=== PATIENT | female | born 1985 | race Caucasian/White ===

== ENCOUNTER 2017-03-04 03:52 | Emergency (ER) | payer MEDICAID ==
[2017-03-04] MEDS ORDERED: Aspirin Low Dose CHEW TAB* 81 MG PO ONE (04:50)
[2017-03-04 05:07] LABS: Hematocrit 32 % (35-47); Hemoglobin 10.5 g/dl (12.0-16.0); Mean Corpuscular HGB Conc 33 g/dl (31-36); Mean Corpuscular Hemoglobin 27 pg (27-31); Mean Corpuscular Volume 81 fL (80-97); Mean Platelet Volume 9 um3 (7.4-10.4); Red Blood Count 3.91 10^6/ul (4.0-5.4); Red Cell Distribution Width 14 % (10.5-15); White Blood Count 4.1 10^3/ul (3.5-10.8)
[2017-03-04 05:15] LABS: ALT 23 U/L (7-52); AST 20 U/L (13-39); Albumin 3.7 g/dL (3.2-5.2); Alkaline Phosphatase 45 U/L (34-104); Anion Gap 6 mmol/L (2-11); Blood Urea Nitrogen 16 mg/dL (6-24); CO2 Carbon Dioxide 25 mmol/L (22-32); Calcium 8.8 mg/dL (8.6-10.3); Chloride 106 mmol/L (101-111); EGFR African American 106.9 (>60); EGFR Non-African American 83.1 (>60); Globulin 2.7 g/dL (2-4); Glucose 84 mg/dL (70-100); Potassium 3.8 mmol/L (3.5-5.0); Sodium 137 mmol/L (133-145); Total Protein 6.4 g/dL (6.4-8.9)
--- NOTE | 2017-03-04 06:52 | ED ---
Mily Conteh Michael, scribed for Tram Nieves MD on 03/04/17 at 0456 . HPI Chest Pain - HPI Summary HPI Summary: 31 y/o female comes to the ED presenting with constant cramping CP that started today at 0100. She reports that the CP radiates to her neck, left shoulder, and down her LUE. The pt also c/o nausea, vomiting, and SOB. Zantac did not alleviate the pt's symptoms. No one in the pt's immediate family had a FL before the age of 55. - History of Current Complaint Chief Complaint: EDChestPainROMI Time Seen by Provider: 03/04/17 04:08 Hx Obtained From: Patient, Medical Records Onset/Duration: Started Hours Ago, Still Present Timing: Constant Initial Severity: Moderate Current Severity: Moderate Pain Intensity: 6 Pain Scale Used: 0-10 Numeric Chest Pain Location: Diffuse Chest Pain Radiates: Yes Chest Pain Radiates To:: Shoulder, Arm, Neck Character: Other: - cramping Aggravating Factor(s): Nothing Alleviating Factor(s): Nothing Associated Signs and Symptoms: Positive: Chest Pain, Shortness of Breath, Nausea , Vomiting - Allergy/Home Medications Allergies/Adverse Reactions: Allergies Allergy/AdvReac Type Severity Reaction Status Date / Time Penicillins [PCN] Allergy Unknown Unknown Verified 09/26/16 08:01 Reaction Details Sulfa Antibiotics Allergy Unknown Unknown Verified 09/26/16 08:01 Reaction Details PMH/Surg Hx/FS Hx/Imm Hx Endocrine/Hematology History: Denies: Hx Diabetes, Hx Systemic Lupus Erythematosus Cardiovascular History: Denies: Hx Congestive Heart Failure, Hx Hypertension Respiratory History: Reports: Hx Asthma - PT.STATES NO PROBLEMS X 1 YR GI History: Reports: Hx Diverticulosis, Other GI Disorders - collitis, status post gastric bypass History: Denies: Hx Dialysis, Hx Renal Disease Musculoskeletal History: Denies: Hx Rheumatoid Arthritis - Cancer History Hx Chemotherapy: No - Surgical History Surgery Procedure, Year, and Place: GASTRIC BYPASS @ [place], [place] APRIL 2014/TWISTED BOWEL WITH SX 09/2015 Infectious Disease History: No Infectious Disease History: Denies: Traveled Outside the [place] in Last 30 Days - Family History Known Family History: Positive: Cardiac Disease, Hypertension, Diabetes, Other - HLD - Social History Occupation: Employed Full-time Lives: With Family Alcohol Use: None Hx Substance Use: No Substance Use Type: Reports: None Hx Tobacco Use: No Smoking Status (MU): Never Smoked Tobacco Review of Systems Positive: Chest Pain Positive: Shortness Of Breath Positive: Vomiting, Nausea All Other Systems Reviewed And Are Negative: Yes Physical Exam Triage Information Reviewed: Yes Vital Signs On Initial Exam: Initial Vitals Temp Pulse Resp BP Pulse Ox 97.8 F 88 17 138/83 98 03/04/17 03:56 03/04/17 03:56 03/04/17 03:56 03/04/17 03:56 03/04/17 03:56 Vital Signs Reviewed: Yes Appearance: Positive: Well-Appearing, No Pain Distress Skin: Positive: Warm, Skin Color Reflects Adequate Perfusion, Dry Eyes: Positive: EOMI, EVELYN ENT: Positive: Pharynx normal, TMs normal Neck: Positive: Supple, Nontender Respiratory/Lung Sounds: Positive: Clear to Auscultation, Breath Sounds Present. Negative: Rales, Rhonchi, Wheezes Cardiovascular: Positive: RRR, Other - no gallops. Negative: Murmur, Rub Abdomen Description: Positive: Nontender, Soft, Other: - no rebound. Negative: Distended, Guarding Bowel Sounds: Positive: Present Musculoskeletal: Positive: Strength/ROM Intact. Negative: Edema Left, Edema Right Neurological: Positive: Sensory/Motor Intact, Alert, Oriented to Person Place, Time, CN Intact II-III Psychiatric: Positive: Affect/Mood Appropriate Diagnostics - Vital Signs Vital Signs Temp Pulse Resp BP Pulse Ox 03/04/17 03:56 97.8 F 88 17 138/83 98 - Laboratory Lab Results: Lab Results 03/04/17 03/04/17 03/04/17 Range/Units 04:30 04:30 04:30 WBC 4.1 (3.5-10.8) 10^3/ul RBC 3.91 L (4.0-5.4) 10^6/ul Hgb 10.5 L (12.0-16.0) g/dl Hct 32 L (35-47) % MCV 81 (80-97) fL MCH 27 (27-31) pg MCHC 33 (31-36) g/dl RDW 14 (10.5-15) % Plt Count 142 L (150-450) 10^3/ul MPV 9 (7.4-10.4) um3 Neut % (Auto) 45.4 (38-83) % Lymph % (Auto) 44.9 (25-47) % [place] % (Auto) 7.1 (1-9) % Eos % (Auto) 1.9 (0-6) % Baso % (Auto) 0.7 (0-2) % Absolute Neuts (auto) 1.8 (1.5-7.7) 10^3/ul Absolute Lymphs (auto) 1.8 (1.0-4.8) 10^3/ul Absolute Monos (auto) 0.3 (0-0.8) 10^3/ul Absolute Eos (auto) 0.1 (0-0.6) 10^3/ul Absolute Basos (auto) 0 (0-0.2) 10^3/ul Absolute Nucleated RBC 0 10^3/ul Nucleated RBC % 0 D-Dimer, Quantitative (Less Than 230) ng/mL Sodium 137 (133-145) mmol/L Potassium 3.8 (3.5-5.0) mmol/L Chloride 106 (101-111) mmol/L Carbon Dioxide 25 (22-32) mmol/L Anion Gap 6 (2-11) mmol/L BUN 16 (6-24) mg/dL Creatinine 0.80 (0.51-0.95) mg/dL Est GFR ( Amer) 106.9 (>60) Est GFR (Non-Af Amer) 83.1 (>60) BUN/Creatinine Ratio 20.0 (8-20) Glucose 84 (70-100) mg/dL Lactic Acid 0.6 (0.5-2.0) mmol/L Calcium 8.8 (8.6-10.3) mg/dL Total Bilirubin 0.30 (0.2-1.0) mg/dL AST 20 (13-39) U/L ALT 23 (7-52) U/L Alkaline Phosphatase 45 (34-104) U/L Troponin I 0.00 (<0.04) ng/mL Total Protein 6.4 (6.4-8.9) g/dL Albumin 3.7 (3.2-5.2) g/dL Globulin 2.7 (2-4) g/dL Albumin/Globulin Ratio 1.4 (1-3) Beta HCG, Quant < 0.60 mIU/mL 03/04/17 Range/Units 04:30 WBC (3.5-10.8) 10^3/ul RBC (4.0-5.4) 10^6/ul Hgb (12.0-16.0) g/dl Hct (35-47) % MCV (80-97) fL MCH (27-31) pg MCHC (31-36) g/dl RDW (10.5-15) % Plt Count (150-450) 10^3/ul MPV (7.4-10.4) um3 Neut % (Auto) (38-83) % Lymph % (Auto) (25-47) % [place] % (Auto) (1-9) % Eos % (Auto) (0-6) % Baso % (Auto) (0-2) % Absolute Neuts (auto) (1.5-7.7) 10^3/ul Absolute Lymphs (auto) (1.0-4.8) 10^3/ul Absolute Monos (auto) (0-0.8) 10^3/ul Absolute Eos (auto) (0-0.6) 10^3/ul Absolute Basos (auto) (0-0.2) 10^3/ul Absolute Nucleated RBC 10^3/ul Nucleated RBC % D-Dimer, Quantitative < 200 (Less Than 230) ng/mL Sodium (133-145) mmol/L Potassium (3.5-5.0) mmol/L Chloride (101-111) mmol/L Carbon Dioxide (22-32) mmol/L Anion Gap (2-11) mmol/L BUN (6-24) mg/dL Creatinine (0.51-0.95) mg/dL Est GFR ( Amer) (>60) Est GFR (Non-Af Amer) (>60) BUN/Creatinine Ratio (8-20) Glucose (70-100) mg/dL Lactic Acid (0.5-2.0) mmol/L Calcium (8.6-10.3) mg/dL Total Bilirubin (0.2-1.0) mg/dL AST (13-39) U/L ALT (7-52) U/L Alkaline Phosphatase (34-104) U/L Troponin I (<0.04) ng/mL Total Protein (6.4-8.9) g/dL Albumin (3.2-5.2) g/dL Globulin (2-4) g/dL Albumin/Globulin Ratio (1-3) Beta HCG, Quant mIU/mL Result Diagrams: 03/04/17 04:30 03/04/17 04:30 Lab Statement: Any lab studies that have been ordered have been reviewed, and results considered in the medical decision making process. - Radiology CXR Xray Interpretation: No Acute Changes Radiology Interpretation Completed By: ED Physician - EKG EK EKG Rhythm: Sinus Rhythm - 72 ST Segment: Normal Ectopy: None Chest Pain Course/Dx - Course Course Of Treatment: 31 yo s/p gastric bypass with cp that she initially thought was indigestion, ekg trop negative, ddimer neg. oK to go home - Diagnoses Provider Diagnoses: Chest pain Discharge - Discharge Plan Condition: Stable Disposition: HOME Patient Education Materials: Chest Pain (ED) Referrals: Charles Chaudhary MD [Primary Care Provider] - The documentation as recorded by the Mily garg Michael accurately reflects the service I personally performed and the decisions made by me, Tram Nieves MD.
[2017-03-04 07:03] VITALS: BP 134/76
--- NOTE | 2017-03-04 08:30 | RAD ---
Indication: LEFT chest pain and shortness of breath. Previous gastric bypass and hernia repair. Asthma. Comparison: September 26, 2016 CT abdomen. February 25, 2016 chest radiograph. Technique: Upright AP 0508 hours Report: Clear lungs and pleural spaces. Negative for pneumothorax. The heart, pulmonary vasculature, and mediastinal contours are unremarkable. Negative for free air beneath the diaphragm. Unremarkable osseous structures and soft tissue contours. IMPRESSION: No evidence for acute intrathoracic disease.
== END 2017-03-04 07:02 | disposition home or self-care (01) ==
LOC: ED 03:52
DX: R07.9 Chest pain, unspecified (principal); R06.02 Shortness of breath; R11.2 Nausea with vomiting, unspecified
CPT/HCPCS: 36415; 71010; 80053; 83605; 84484; 84702; 85025; 85379; 93005; 99282; A9270-GY

== ENCOUNTER 2017-09-04 10:42 | Emergency (ER) | payer MEDICAID ==
[2017-09-04 10:54] VITALS: BP 126/64
--- NOTE | 2017-09-04 11:09 | UC ---
Respiratory Complaint HPI - History of Current Complaint Chief Complaint: UCGeneralIllness Stated Complaint: COUGH 20 WEEKS PREG CRAMPING Time Seen by Provider: 09/04/17 10:58 - Allergies/Home Medications Allergies/Adverse Reactions: Allergies Allergy/AdvReac Type Severity Reaction Status Date / Time Penicillins [PCN] Allergy Unknown Unknown Verified 09/04/17 10:54 Reaction Details Sulfa Antibiotics Allergy Unknown Unknown Verified 09/04/17 10:54 Reaction Details Home Medications: Home Medications Cyanocobalamin [B-12] 3,000 mg PO DAILY 09/04/17 [History Confirmed 09/04/17] Docosahexaenoic Acid [ Dha] 1 cap PO DAILY 09/04/17 [History Confirmed 09/04/17] PMH/Surg Hx/FS Hx/Imm Hx - Additional Past Medical History Additional PMH: c/o persistent worsening cough for about a week , 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 Cough is dry, paroxysmal, denies fever, sputum production, URI symptoms. Feels tightness in chest, last asthma episode 3 years ago before bariatric surgery was performed. She states she is 20 weeks , AWA 01-29-18. Respiratory History: Asthma - Surgical History Surgical History: Yes Surgery Procedure, Year, and Place: GASTRIC BYPASS @ [place], [place] APRIL 2014/TWISTED BOWEL WITH SX 09/2015 - Family History Known Family History: Positive: Cardiac Disease, Hypertension, Diabetes, Other - HLD - Social History Alcohol Use: None Substance Use Type: None Smoking Status (MU): Never Smoked Tobacco Review of Systems Respiratory: Shortness Of Breath, Cough All Other Systems Reviewed And Are Negative: Yes Physical Exam Triage Information Reviewed: Yes Appearance: Ill-Appearing Vital Signs: Initial Vital Signs Temp 98.1 F 09/04/17 10:50 Resp 21 09/04/17 10:50 BP 126/64 09/04/17 10:50 Pulse Ox 99 09/04/17 10:50 Vital Signs Reviewed: Yes Eye Exam: Normal ENT Exam: Other - cerumen b/l ENT: Positive: Pharyngeal erythema Dental Exam: Normal Neck exam: Normal Respiratory Exam: Normal Cardiovascular Exam: Normal Abdominal Exam: Normal Abdomen Description: Positive: Other: - gravid uterus fundus at umbilical level [id number] UC Diagnostic Evaluation - Laboratory O2 Sat by Pulse Oximetry: 99 Respiratory Course/Dx - Course Course Of Treatment: Bronchitis with PMH of asthma. Start zpack and inhaled medications. F/u OGGYN and PCP - Differential Dx/Diagnosis Provider Diagnoses: asthma. Bronchitis. second trimester Discharge - Discharge Plan Condition: Stable Disposition: HOME Patient Education Materials: Asthma (ED), How to Use a Nebulizer (ED), Acute Bronchitis (ED)
== END 2017-09-04 11:50 | disposition home or self-care (01) ==
LOC: UCEAST 10:42
DX: O26.892 Other specified pregnancy related conditions, second trimester (principal); J45.909 Unspecified asthma, uncomplicated; Z3A.20 20 weeks gestation of pregnancy; H61.23 Impacted cerumen, bilateral; Z98.84 Bariatric surgery status; Z88.0 Allergy status to penicillin; Z88.2 Allergy status to sulfonamides
CPT/HCPCS: 99212; G0463

== ENCOUNTER 2017-10-29 11:48 | Emergency (ER) | payer OTHER | END 2017-10-29 12:02 | disposition left against medical advice (07) | LOC: UCEAST 11:48 | DX: Z53.21 Procedure and treatment not carried out due to patient leaving prior to being seen by health care provider (principal) ==

== ENCOUNTER 2018-06-19 09:24 | Emergency (ER) | payer OTHER ==
[2018-06-19] MEDS ORDERED: Diazepam TAB(*) 5 MG PO ONE (11:24)
[2018-06-19] MEDS ORDERED: Ketorolac INJ* 60 MG/2 ML VIAL IM ONE (11:24)
[2018-06-19 12:09] LABS: Urine Appearance Clear; Urine Blood Negative (Negative); Urine Color Yellow; Urine Ketones Negative (Negative); Urine Protein Negative (Negative); Urine Specific Gravity 1.025 (1.010-1.030); Urine Urobilinogen Negative (Negative)
[2018-06-19] MEDS ORDERED: Ondansetron ODT TAB* 4 MG PO ONE (14:11)
--- NOTE | 2018-06-19 14:30 | RAD ---
HISTORY: pain, neck pain COMPARISONS: None VIEWS: 4, Frontal, lateral, and open-mouth odontoid views of the cervical spine. FINDINGS: The cervical spine is visualized from the skull base through T1. ALIGNMENT: There is straightening of the normal cervical lordosis. VERTEBRAL BODIES: The odontoid process is intact. The atlantoaxial intervals are symmetric. There is mild elongation of the transverse processes of C7. JOINTS: There is no subluxation or dislocation. The facet joints are unremarkable. INTERVERTEBRAL DISCS: The intervertebral disc heights are normal. SOFT TISSUE: The prevertebral soft tissues are normal. OTHER: The skull base is normal. The lung apices are clear. IMPRESSION: STRAIGHTENING OF THE CERVICAL LORDOSIS. MILD ELONGATION OF THE TRANSVERSE PROCESSES OF C7.
--- NOTE | 2018-06-19 14:31 | RAD ---
HISTORY: Back pain COMPARISONS: March 17, 2013 VIEWS: 5 , Frontal, lateral, coned-down lateral sacral, and bilateral oblique views of the lumbar spine. FINDINGS: ALIGNMENT: The alignment is normal. VERTEBRAL BODIES: The vertebral body heights are normal. The interpedicular distances are normal. JOINTS: The facet joints are normal. INTERVERTEBRAL DISCS: The intervertebral disc heights are normal. SOFT TISSUE: Unremarkable. OTHER: The pelvis is unremarkable. The lung bases are clear. IMPRESSION: UNREMARKABLE RADIOGRAPHS OF THE LUMBAR SPINE.
--- NOTE | 2018-06-19 14:32 | RAD ---
HISTORY: pain, back pain COMPARISONS: None VIEWS: 3, Frontal and lateral views of the thoracic spine. FINDINGS: ALIGNMENT: The alignment is normal. VERTEBRAL BODIES: The vertebral body heights are normal. The interpedicular distances are normal. JOINTS: Unremarkable. INTERVERTEBRAL DISCS: The intervertebral disc heights are normal. SOFT TISSUE: Unremarkable OTHER: The visualized lungs are clear. IMPRESSION: UNREMARKABLE RADIOGRAPHS OF THE THORACIC SPINE.
--- NOTE | 2018-06-19 15:08 | ED ---
Back Pain - HPI Summary HPI Summary: Patient is a 32-year-old female who presents emergency department for diffuse back pain. Patient states she's been dealing with ongoing back pain and neck pain over the last several weeks. She states he saw her family doctor and they will return to get her set up with an MRI of her neck. 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 She states she gets intermittent tingling in her upper extremities but currently denies arm or leg numbness, tingling or weakness. Denies bowel or bladder incontinence or retention. Denies abdominal pain, fever, urinary symptoms, recent illness. Pain is worse with movement. Patient states her family doctor prescribed her course of muscle relaxers, steroids and pain medication. Denies control use, smoking, history of blood clots, recent surgery, recent travels. She states these medications made little improvement. Symptoms are mild in severity. Movement makes symptoms worse. Nothing makes symptoms better. - History of Current Complaint Chief Complaint: EDAbdPain Stated Complaint: ABD/BACK PAIN Time Seen by Provider: 06/19/18 11:07 Hx Obtained From: Patient Pain Intensity: 10 - Allergies/Home Medications Allergies/Adverse Reactions: Allergies Allergy/AdvReac Type Severity Reaction Status Date / Time Penicillins Allergy Unknown Verified 06/19/18 11:10 Reaction Details Sulfa (Sulfonamide Allergy Unknown Verified 06/19/18 11:10 Antibiotics) Reaction Details PMH/Surg Hx/FS Hx/Imm Hx Previously Healthy: Yes Endocrine/Hematology History: Denies: Hx Diabetes, Hx Systemic Lupus Erythematosus, Hx Thyroid Disease Cardiovascular History: Denies: Hx Congestive Heart Failure, Hx Hypertension Respiratory History: Reports: Hx Asthma - PT.STATES NO PROBLEMS X 1 YR Denies: Hx Chronic Obstructive Pulmonary Disease (COPD) GI History: Reports: Hx Diverticulosis, Other GI Disorders - collitis, status post gastric bypass Denies: Hx Ulcer History: Denies: Hx Dialysis, Hx Renal Disease Musculoskeletal History: Denies: Hx Rheumatoid Arthritis - Cancer History Hx Chemotherapy: No - Surgical History Surgery Procedure, Year, and Place: GASTRIC BYPASS @ [place], [place] APRIL 2014/TWISTED BOWEL WITH SX 09/2015 - Immunization History Immunizations Up to Date: Yes Infectious Disease History: No Infectious Disease History: Denies: Hx Clostridium Difficile, Hx Hepatitis, Hx Human Immunodeficiency Virus (HIV), Hx of Known/Suspected MRSA, Hx Shingles, Hx Tuberculosis, Hx Known/ Suspected VRE, Hx Known/Suspected VRSA, History Other Infectious Disease, Traveled Outside the [place] in Last 30 Days - Family History Known Family History: Positive: Cardiac Disease, Hypertension, Diabetes, Other - HLD - Social History Occupation: Employed Full-time Lives: Alone Alcohol Use: None Hx Substance Use: No Substance Use Type: Reports: None Hx Tobacco Use: No Smoking Status (MU): Never Smoked Tobacco Review of Systems Constitutional: Negative Negative: Fever, Chills Eyes: Negative ENT: Negative Cardiovascular: Negative Negative: Palpitations, Chest Pain Respiratory: Negative Negative: Shortness Of Breath, Cough Gastrointestinal: Negative Genitourinary: Negative Positive: Other - diffuse back pain Skin: Negative Neurological: Negative Negative: Headache, Weakness, Paresthesia, Numbness, Syncope All Other Systems Reviewed And Are Negative: Yes Physical Exam Triage Information Reviewed: Yes Vital Signs On Initial Exam: Initial Vitals Temp Pulse Resp BP Pulse Ox 98.9 F 79 20 144/91 100 06/19/18 09:29 06/19/18 09:29 06/19/18 09:29 06/19/18 09:29 06/19/18 09:29 Vital Signs Reviewed: Yes Appearance: Positive: Pain Distress - Pt. lying on bed, tearful. Appears uncomfortable but nontoxic. Skin: Positive: Warm, Dry Head/Face: Positive: Normal Head/Face Inspection Eyes: Positive: Normal Neck: Positive: Supple Respiratory/Lung Sounds: Positive: Clear to Auscultation, Breath Sounds Present Cardiovascular: Positive: Normal, RRR Abdomen Description: Positive: Nontender, Soft. Negative: CVA Tenderness (R), CVA Tenderness (L) Musculoskeletal: Positive: Other - 5 out of 5 strength in bilateral upper and lower extremities. No neurosensory deficits. Pulses intact. Neurological: Positive: Normal, CN Intact II-III Psychiatric: Positive: Affect/Mood Appropriate Diagnostics - Vital Signs Vital Signs Temp Pulse Resp BP Pulse Ox 06/19/18 14:13 70 122/91 100 06/19/18 14:09 68 99 06/19/18 11:46 77 120/70 99 06/19/18 11:44 71 129/79 99 08/13/18 11:40 18 06/19/18 11:18 84 100 06/19/18 11:16 89 153/98 97 06/19/18 09:29 98.9 F 79 20 144/91 100 - Laboratory Lab Results: Lab Results 06/19/18 Range/Units 11:47 Urine Color Yellow Urine Appearance Clear Urine pH 5.0 (5-9) Ur Specific [place] 1.025 (1.010-1.030) Urine Protein Negative (Negative) Urine Ketones Negative (Negative) Urine Blood Negative (Negative) Urine Nitrate Negative (Negative) Urine Bilirubin Negative (Negative) Urine Urobilinogen Negative (Negative) Ur Leukocyte Esterase Negative (Negative) Urine Glucose Negative (Negative) Lab Statement: Any lab studies that have been ordered have been reviewed, and results considered in the medical decision making process. Back Pain Course/Dx - Course Course Of Treatment: Patient presenting to the ER for diffuse midline back pain. She has no neurological deficits or evidence of cauda equina syndrome. She is afebrile. He should concern for possible UTI given increased back pain. Will obtain urinalysis. The patient a dose of Toradol and Valium for pain and reassess. Urinalysis is negative for infection. Reexamination patient states her pain has not improved at all, she is still crying and uncomfortable. Case discussed with Dr. Stewart for further recommendation and he recommended xrays of spine given ongoing pain. Xrays of cervical, lumber, and thoracic spine obtained. Xrays reviewed by radiology and are negative for acute change. On re-exam pt. is sitting up on side of bed and appears more comfortable. Results discussed. Advised pt. to call her PCP and possible referral to PT. Advised warm compresses. Avoid heavy lifting. Tylenol or motrin for pain as directed. Work excuse given. - Diagnoses Differential Diagnosis/HQI/PQRI: Positive: Arthritis, Cauda Equina Syndrome, Compressive Cord Syndrome, Fracture, Herniated Disc, Neoplasm, Strain, Sprain Provider Diagnoses: Back pain Discharge - Sign-Out/Discharge Documenting (check all that apply): Patient Departure - Discharge Plan Condition: Good Disposition: HOME Patient Education Materials: Cervical Radiculopathy (ED), Muscle Spasm (ED), Thoracic Back Strain (ED) Forms: *Work Release Referrals: No Primary Care Phys,NOPCP [Primary Care Provider] - [facility] [place] PHYSICIAN REFERRAL [Outside] Additional Instructions: Schedule a follow up appointment with your PCP Motrin or tylenol for pain as directed Apply warm compresses to back Avoid heavy lifting Return to ER if symptoms change or worsen - Billing Disposition and Condition Condition: GOOD Disposition: Home
[2018-06-19 15:35] VITALS: BP 134/99
== END 2018-06-19 15:34 | disposition home or self-care (01) ==
LOC: ED 09:24
DX: M54.9 Dorsalgia, unspecified (principal); Z98.84 Bariatric surgery status; Z88.0 Allergy status to penicillin; Z88.2 Allergy status to sulfonamides
CPT/HCPCS: 72040; 72070; 72110; 81003; 96372; 96374; 99283; A9270-GY; J1885

== ENCOUNTER 2024-07-16 13:20 | Observation (INO) ==
[2024-07-16] MEDS: HYDROmorphone 1 MG/1 ML SYRINGE IV ONE ×6 (13:57→19:57)
[2024-07-16] MEDS: Ondansetron 4 mg VIAL 2 MG/ML 2 ml VIAL IV ONE (13:57)
[2024-07-16] MEDS: Lactated Ringers 1000 ml BAG 1,000 ML IV ONE (13:58)
[2024-07-16 14:11] LABS: ABS Basophils 0.1 10^3/uL (0.0-0.1); ABS Lymphocytes 1.5 10^3/uL (1.0-4.8); ABS Monocytes 0.4 10^3/uL (0.0-0.9); ABS Neutrophils 5.2 10^3/uL (1.5-7.6); Eosinophil % 0.1 %; Hematocrit 31.5 % (35-45); Lymphocyte % 20.9 %; Mean Corpuscular Hemoglobin 21.8 pg (27-33); Mean Corpuscular Hgb Conc 31.7 g/dL (31-36); Mean Corpuscular Volume 68.9 fL (80-97); Mean Platelet Volume 9.7 fL (7.5-11.2); Platelet Count 268 10^3/uL (150-450); Red Blood Count 4.57 10^6/uL (3.63-4.92); Red Cell Distribution Width 17.8 % (12-17); White Blood Count 7.1 10^3/uL (3.8-11.8)
[2024-07-16 14:28] LABS: Urine Appearance Clear; Urine Bilirubin Negative (Negative); Urine Blood Negative (Negative); Urine Color Light-Yellow; Urine Glucose Negative (Negative); Urine Ketones Negative (Negative); Urine Nitrite Negative (Negative); Urine Protein Negative (Negative); Urine Specific Gravity 1.017 (1.002-1.030); Urine Urobilinogen Negative (Negative)
[2024-07-16 14:37] LABS: ALT 20 U/L (7-52); AST 18 U/L (13-39); Albumin 4.4 g/dL (3.2-5.2); Albumin/Globulin Ratio 1.5 (1-3); Alkaline Phosphatase 72 U/L (35-149); Anion Gap 8 mmol/L (2-16); Blood Urea Nitrogen 14 mg/dL (6-24); C Reactive Protein 4.06 mg/L (<8.01); CO2 Carbon Dioxide 25 mmol/L (22-32); Calcium 10.3 mg/dL (8.6-10.3); Chloride 106 mmol/L (101-111); Creatinine, Serum 0.73 mg/dL (0.51-0.95); Globulin 2.9 g/dL (2-4); Glucose 98 mg/dL (70-100); Lipase 29 U/L (11.0-82.0); Potassium 4.5 mmol/L (3.5-5.0); Sodium 139 mmol/L (135-145); Total Bilirubin 0.3 mg/dL (0.2-1.0); Total Protein 7.3 g/dL (6.4-8.9); eGFR CKD-EPI 107.2 (>60)
[2024-07-16 14:38] LABS: HCG Pregnancy < 0.60 mIU/mL
[2024-07-16] MEDS: Acetaminophen IV 1 GM/100ML 1,000 MG/100 ML BAG IV ONE (15:03)
[2024-07-16] MEDS: Iohexol 350 (CONTRAST) 500 ML MDV IV ONE (15:36)
[2024-07-16] MEDS ORDERED: Morphine 2 MG/ML SYRINGE IV PRN (19:55)
[2024-07-16] MEDS: Acetaminophen IV 1 GM/100ML 1,000 MG/100 ML BAG IV SCH (21:32)
[2024-07-16] MEDS: Ondansetron 4 mg VIAL 2 MG/ML 2 ml VIAL IV PRN (21:33)
[2024-07-16] MEDS: HYDROmorphone 0.5 MG/0.5 ML SYRINGE IV SLOW PU PRN (22:50)
[2024-07-16 23:10] LABS: Hemoglobin 8.6 g/dL (11.5-14.3)
[2024-07-17] MEDS ORDERED: Prochlorperazine 5 mg/ml 2 ml VIAL (10 mg) IV PRN (00:37)
[2024-07-17] MEDS: Pantoprazole VIAL 40 MG VIAL IV SCH (01:57)
[2024-07-17 04:49] LABS: ABS Lymphocytes 1.5 10^3/uL (1.0-4.8); ABS Monocytes 0.3 10^3/uL (0.0-0.9); ABS Neutrophils 2.9 10^3/uL (1.5-7.6); Eosinophil % 0.9 %; Hematocrit 27.2 % (35-45); Hemoglobin 8.6 g/dL (11.5-14.3); Lymphocyte % 31.7 %; Mean Corpuscular Hgb Conc 31.8 g/dL (31-36); Mean Corpuscular Volume 69.2 fL (80-97); Mean Platelet Volume 9.5 fL (7.5-11.2); Nucleated Red Blood Cells % 0.1 %/100WBC (0.0-0.8); Platelet Count 206 10^3/uL (150-450); Red Blood Count 3.93 10^6/uL (3.63-4.92); Red Cell Distribution Width 17.9 % (12-17); White Blood Count 4.8 10^3/uL (3.8-11.8)
[2024-07-17 06:03] LABS: ALT 15 U/L (7-52); AST 14 U/L (13-39); Albumin 3.5 g/dL (3.2-5.2); Albumin/Globulin Ratio 1.5 (1-3); Alkaline Phosphatase 56 U/L (35-149); Anion Gap 5 mmol/L (2-16); Blood Urea Nitrogen 11 mg/dL (6-24); CO2 Carbon Dioxide 25 mmol/L (22-32); Calcium 8.7 mg/dL (8.6-10.3); Chloride 109 mmol/L (101-111); Globulin 2.3 g/dL (2-4); Glucose 88 mg/dL (70-100); Potassium 3.9 mmol/L (3.5-5.0); Sodium 139 mmol/L (135-145); Total Bilirubin 0.3 mg/dL (0.2-1.0); Total Protein 5.8 g/dL (6.4-8.9)
[2024-07-17 06:17] LABS: % Iron Saturation 5 % (15-55); .Transferrin 309 mg/dL (203-362); Iron < 20 ug/dL (50-212); Total Iron Binding Capacity 433 mcg/dL (250-450); Unsaturated Iron Binding 413 ug/dL
[2024-07-17] MEDS: Venlafaxine XR 75 mg PO SCH (08:16)
[2024-07-17] MEDS: HYDROmorphone 1 MG/1 ML SYRINGE IV SLOW PU ONE ×2 (08:30→15:21)
[2024-07-17] MEDS ORDERED: Venlafaxine XR 75 mg PO SCH (09:00)
[2024-07-17] MEDS: Prochlorperazine 5 mg/ml 2 ml VIAL (10 mg) IV PRN (11:11)
[2024-07-17 14:23] LABS: Vitamin B12 1342 pg/mL (180-914)
[2024-07-18 05:25] LABS: ABS Lymphocytes 1.3 10^3/uL (1.0-4.8); ABS Monocytes 0.3 10^3/uL (0.0-0.9); ABS Neutrophils 2.8 10^3/uL (1.5-7.6); ABS Nucleated RBC 0.01 10^3/ul; Hemoglobin 8.4 g/dL (11.5-14.3); Lymphocyte % 28.7 %; Mean Corpuscular Hemoglobin 22.3 pg (27-33); Mean Corpuscular Hgb Conc 32.3 g/dL (31-36); Mean Corpuscular Volume 68.9 fL (80-97); Mean Platelet Volume 9.6 fL (7.5-11.2); Nucleated Red Blood Cells % 0.2 %/100WBC (0.0-0.8); Platelet Count 169 10^3/uL (150-450); Red Blood Count 3.77 10^6/uL (3.63-4.92); Red Cell Distribution Width 17.6 % (12-17); White Blood Count 4.4 10^3/uL (3.8-11.8)
[2024-07-18 05:41] LABS: Creatinine, Serum 0.6 mg/dL (0.51-0.95); Magnesium 1.8 mg/dL (1.9-2.7); Potassium 4.1 mmol/L (3.5-5.0)
[2024-07-18] MEDS: Magnesium Sulfate 2 gm BAG 2 GM/50 ML BAG IVPB ONE (08:02)
[2024-07-18 08:04] LABS: CRP High Sensitivity 3.34 mg/L (<2.00)
[2024-07-18] MEDS: HYDROmorphone 0.5 MG/0.5 ML SYRINGE IV SLOW PU ONE (09:59)
[2024-07-18] MEDS: Sodium Phosphate ADULT ENEMA 133 ML BTL PR ONE ×2 (14:41→15:10)
[2024-07-18] MEDS ORDERED: Glycopyrrolate IV 0.2 MG/ML 1 ML VIAL ONE (17:05)
[2024-07-18] MEDS ORDERED: fentaNYL 100 mcg/2 ml 50 MCG/ML VIAL IV PRN (17:07)
[2024-07-18] MEDS ORDERED: Naloxone 0.4 mg VIAL 0.4 mg/ml 1 ml VIAL IV PRN (17:07)
[2024-07-18] MEDS ORDERED: Ondansetron 4 mg VIAL 2 MG/ML 2 ml VIAL IV PRN (17:07)
[2024-07-18] MEDS ORDERED: Metoclopramide 5 MG/ML VIAL (10 mg) IV PRN (17:07)
[2024-07-18] MEDS ORDERED: Lactated Ringers 1000 ml BAG 1,000 ML IV SCH (18:00)
[2024-07-18] MEDS ORDERED: NS 0.45% 1000 ml BAG 1,000 ML IV SCH (18:00)
[2024-07-18] MEDS ORDERED: Propofol 10 MG/ML 20 ML BTL ONE (18:01)
[2024-07-18] MEDS: Ferric Gluconate IV 250 MG in NS 0.9% 250 ml 200 ML IVPB SCH (18:59)
[2024-07-19] MEDS: Acetaminophen IV 1 GM/100ML 1,000 MG/100 ML BAG IV ONE (00:33)
[2024-07-19] MEDS: Ondansetron 4 mg VIAL 2 MG/ML 2 ml VIAL IV ONE (00:34)
[2024-07-19 06:06] LABS: ABS Lymphocytes 1.2 10^3/uL (1.0-4.8); ABS Monocytes 0.3 10^3/uL (0.0-0.9); ABS Neutrophils 2.7 10^3/uL (1.5-7.6); Hematocrit 27.4 % (35-45); Hemoglobin 8.6 g/dL (11.5-14.3); Lymphocyte % 27.4 %; Mean Corpuscular Hemoglobin 21.6 pg (27-33); Mean Corpuscular Hgb Conc 31.6 g/dL (31-36); Mean Corpuscular Volume 68.5 fL (80-97); Mean Platelet Volume 9.9 fL (7.5-11.2); Platelet Count 201 10^3/uL (150-450); Red Blood Count 3.99 10^6/uL (3.63-4.92); Red Cell Distribution Width 17.4 % (12-17); White Blood Count 4.3 10^3/uL (3.8-11.8)
[2024-07-19 10:09] VITALS: BP 116/71
[2024-07-19] MEDS: Glycopyrrolate IV 0.2 MG/ML 1 ML VIAL IV SLOW PU ONE (11:39)
[2024-07-19] MEDS: Buffered Lidocaine 1% SYRIN 1 ml INTRADERM ONE (11:39)
== END 2024-07-19 12:30 | disposition home or self-care (01) ==
LOC: EDHOLD 13:20 → ED 13:20 → MEDTELE 07-17 13:51
PROVIDERS: ADMIT Internal Medicine; ATTEND Internal Medicine
PROC: O.GIEGD (2024-07-18 15:35)